=== PATIENT | female | born 1965 | race Hispanic/Latino ===

== ENCOUNTER 2019-09-06 06:28 | Emergency (ER) | payer SELFPAY ==
[~2019-09-06] VITALS: Ht 152.4 cm; Wt 90.7 kg
--- NOTE | 2019-09-06 07:12 | Emergency Department Note ---
History of Present Illnes History of Present Illness Chief Complaint: COVID PUI History of Present Illness This is a 53 year old female arrived to the ED for cough, fever and chills- +covid 19 exposure . Chief Complaint Comment 53 Y/O FEMALE PT AAOX3 PRESENTS TO THE ER C/O FEVER/CHILLS, DIARRHEA, GENERALIZED BODY ACHES AND DRY COUGH ONSET X1 WEEK WITH WORSENING LAST NIGHT; PT DENIES BEING TESTED FOR COVID; PT REPORTS BOTH CHILDREN TESTED POSITIVE FOR COVID-19; NAD NOTED AT THIS TIME; RESP EVEN/UNLABORED; LAST DOSE OF TYLENOL LAST NIGHT; V/S/S; SPO2 98% RA. Historian: Patient Arrival Mode: Car Onset (how long ago): day(s) Onset quality: gradual Duration (how long): day(s) Timing of current episode: intermittent Progression: unchanged Chronicity: new Relieving factors: none Exacerbating factors: none Past Medical/Family History Physician Review I have reviewed the patient's past medical and family history. Any updates have been documented here. 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 Other Surgery: RT NEPHRECTOMY BLE SX Social History Smoking Cessation: Former smoker Alcohol Use: None Any Illegal Drug Use: No Physically hurt or threatened: No Other Any Pre-Existing Lines (PICC,: No Review of Systems Review of Systems Constitutional: Reports as per HPI, Reports chills, Reports fever EENTM: Reports no symptoms Cardiovascular: Reports no symptoms Respiratory: Reports as per HPI, Reports cough Gastrointestinal: Reports no symptoms Genitourinary: Reports no symptoms Musculoskeletal: Reports no symptoms Integumentary: Reports no symptoms Neurological: Reports no symptoms Psychological: Reports no symptoms Endocrine: Reports no symptoms Hematological/Lymphatic: Reports no symptoms Physical Exam Related Data Allergies: Coded Allergies: No Known Allergies (Unverified , 09/06/19) Triage Vital Signs Vital Signs Date Time Temp Pulse Resp B/P (MAP) Pulse Ox O2 Delivery O2 Flow Rate FiO2 09/06/19 06:39 100.8 85 20 147/82 98 Room Air Vital signs reviewed: Yes Physical Exam CONSTITUTIONAL Constitutional: Present well-developed, Present well-nourished HENT HENT: Present normocephalic, Present atraumatic, Present oropharynx clear/moist, Present nose normal HENT L/R: Present left ext ear normal, Present right ext ear normal EYES Eyes: Reports PERRL, Reports conjunctivae normal NECK Neck: Present ROM normal PULMONARY Pulmonary: Present effort normal, Present breath sounds normal CARDIOVASCULAR Cardiovascular: Present regular rhythm, Present heart sounds normal, Present capillary refill normal, Present normal rate GASTROINTESTINAL Abdominal: Present soft, Present nontender, Present bowel sounds normal GENITOURINARY Genitourinary: Present exam deferred SKIN Skin: Present warm, Present dry MUSCULOSKELETAL Musculoskeletal: Present ROM normal NEUROLOGICAL Neurological: Present alert, Present oriented x 3, Present no gross motor or sensory deficits PSYCHOLOGICAL Psychological: Present mood/affect normal, Present judgement normal Assessment & Plan Medical Decision Making MDM 43-year-old well-appearing male arrives to the ED with complaints of cough fever loss of taste and smell. Patient is clinically presenting with signs and symptoms consistent with Covid 19. Patient informed she is positive until proven otherwise. Patient's oxygen saturation remained 99% even on exertion, no evidence of tachypnea or dyspnea noted in the ED. Spoke present length about the importance of sleeping on her stomach and rotating from side to side. Z-Tc and Decadron given, signs and symptoms for return discussed. In the light of the Covid pandemic, disaster medicine care was given- patient understands why he was not tested for Covid 19 in the ED, no indications for a chest x-ray at this time given normal oxygen saturation and respiratory status. Pt understands she is at high risk of morbidity and mortality given her age and co-morbidiites. Pt understands she is welcome to return to the ED at anytime for worsening symptoms. Assessment & Plan Final Impression: (1) COVID-19 Depart Disposition: HOME, SELF-CARE Last Vital Signs Date Time Temp Pulse Resp B/P (MAP) Pulse Ox O2 Delivery O2 Flow Rate FiO2 09/06/19 06:39 100.8 85 20 147/82 98 Room Air REYNA CHERY DO Sep 06, 2019 07:12
== END 2019-09-06 07:15 | disposition home or self-care (01) ==
LOC: ER 07:13
DX: U07.1 COVID-19 (principal); R50.9 Fever, unspecified; R05 Cough; R19.7 Diarrhea, unspecified; Z86.12 Personal history of poliomyelitis
CPT/HCPCS: 99282